=== PATIENT | female | born 1995 | race Caucasian/White ===

== ENCOUNTER → 2018-05-28 13:02 | Outpatient (CLI) | payer OTHER, SELFPAY ==
--- NOTE | 2018-05-28 13:09 | XR_ITS ---
XR chest 2V HISTORY: Cough, congestion, pain when breathing ITS.REASON: ACUTE BRONCHOPNEUMONIA ORDERING PHYSICIAN: Riaz Solitario MD PATIENT AGE: 22 years COMPARISON: None FINDINGS: The cardiomediastinal silhouette and pulmonary vascularity are within normal limits. Patchy density is present in the right middle lobe consistent with pneumonia. There are a few air bronchograms in the right middle lobe. Upper lobes are clear. No acute findings. No effusions. IMPRESSION: Right middle lobe pneumonia.
== END ==
PROVIDERS: PCP Internal Medicine Adolescent Medicine; Visit Provider Internal Medicine Adolescent Medicine
DX: J18.0 Bronchopneumonia, unspecified organism (principal)
CPT/HCPCS: 71046

== ENCOUNTER 2020-01-03 14:11 | Emergency (ER) | payer OTHER, SELFPAY ==
[2020-01-03 14:13] VITALS: BP 149/77; PULSE 88; RESP 18; TEMP 37; O2SAT 100; BMI 51.2
[2020-01-03 14:20] VITALS: BMI 51.2
--- NOTE | 2020-01-03 14:21 | XR_ITS ---
PROCEDURE: XR CHEST 2V CLINICAL HISTORY: pain with deep breath COMPARISON: CXR2V XR chest 2V from 05/28/2018 FINDINGS: The cardiomediastinal silhouette and pulmonary vascularity are within normal limits. The lungs are clear without infiltrates, suspicious nodules, or pleural effusions. No acute bony abnormalities. IMPRESSION: No acute findings. Dictated by: Matt Puga MD 01/03/2020 15:08 Electronically signed by Matt Puga MD in [place] 01/03/2020 15:08
[2020-01-03 14:33] LABS: Chloride 102 mmol/L (98-107); Sodium 140 mmol/L (136-145)
[2020-01-03 14:34] LABS: Potassium 3.5 mmoL/L (3.5-5.1)
[2020-01-03 14:35] LABS: Basophils # 0.1 K/mm3 (0-0.2); Basophils % 0.8 % (0.1-2.0); Eosinophils # 0.2 K/mm3 (0.0-0.4); Eosinophils % 2.3 % (0.1-12.0); Hematocrit 47.8 % (37.0-47.0); Hemoglobin 16.3 g/dL (12.2-16.2); Lymphocytes # 2.9 K/mm3 (0.7-4.5); Lymphocytes % 34.3 % (10-50); Mean Corpuscular Hemoglobin 30.4 pg (27.0-31.2); Mean Corpuscular Volume 89.2 fl (81-99); Mean Platelet Volume 8.1 fl (7.4-10.4); Monocytes # 0.5 K/mm3 (0.1-1.0); Monocytes % 6.2 % (1.7-9.3); Neutrophils # 4.8 K/mm3 (1.8-7.8); Neutrophils % 56.5 % (37.0-80.0); Platelet Count 321 K/mm3 (142-424); Red Blood Count 5.36 M/mm3 (4.20-5.40); White Blood Count 8.5 K/mm3 (4.8-10.8)
[2020-01-03 14:36] LABS: Alanine Aminotransferase 35 U/L (12-78); Albumin Level 4.2 g/dl (3.5-5.0); Albumin/Globulin Ratio 1.6 (1.1-1.8); Alkaline Phosphatase 72 U/L (38-126); Anion Gap 13.5 mEq/L (5-15); Aspartate Amino Transferase 28 U/L (14-36); Bilirubin,Total 0.3 mg/dl (0.2-1.3); Blood Urea Nitrogen 14 mg/dl (7-17); Calcium 9.5 mg/dl (8.4-10.2); Carbon Dioxide 28 mmol/L (22.0-30.0); Creatinine Clearance Estimated 84 mL/min (50-200); Estimated Glomerular Filt Rate 87 ml/min (>60); GFR (African American) 105 ML/MIN (>60); Globulin 2.7 g/dL (1.3-3.2); Glucose 109 mg/dl (74-100); Total Protein,Serum 6.9 g/dl (6.3-8.2)
[2020-01-03 14:53] LABS: HCG Qualitative, Serum Negative (Negative)
--- NOTE | 2020-01-03 15:02 | PC.NURSE ---
pt return from xray
--- NOTE | 2020-01-03 15:33 | HMH.EDGENADL ---
ED Disposition Clinical Impression: Acute bronchitis Disposition: Home, Self-Care Condition on Discharge: Good Instructions: Acute Bronchitis Additional Instructions: Please stay in quarantine until your cover test comes back tomorrow or Friday. Prescriptions: Azithromycin 250 mg PO DAILY 5 Days #6 tab Transmission Status: Pending to [facility] methylPREDNISolone [Medrol 4mg tab] 4 mg PO DIRECTED #21 tab Transmission Status: Pending to [facility] Albuterol Sulfate [Proventil-HFA 90mcg/puff Inh] 2 puffs IH QID 30 Days #1 inh Transmission Status: Pending to [facility] Referrals: Malcolm Baires MD [Primary Care Provider] - - Critical Care Critical Care Time: No Attestation: On 01/03/20, the high probability of a clinically significant, sudden or life threatening deterioration of the following system(s) required my full and direct attention, intervention and personal management. The time I documented below is in addition to time spent performing reported procedures but includes the following listed in this critical care notation. Medical Decision Making - Medical Records Medical records reviewed: Yes: I reviewed the patient's medical records. - Man Inquiry Pt receiving controlled substance: No Vital Signs: 01/03/20 14:13 Temperature 98.6 F Temperature Source Oral Pulse Rate [Right Radial] 88 Respiratory Rate 18 Blood Pressure [Right Arm] 149/77 H Blood Pressure Mean [Right Arm] 101 Blood Pressure Source [Right Arm] Automatic Cuff Blood Pressure Position [Right Arm] Sitting 02 Sat by Pulse Oximetry 100 Oxygen Delivery Method Room Air - Lab Data Lab results reviewed: Yes: I reviewed the patient's lab results. Lab Results 01/03/20 13:30: WBC 8.5, RBC 5.36, Hgb 16.3 H, Hct 47.8 H, MCV 89.2, MCH 30.4, MCHC 34.0, RDW 13.0, Plt Count 321, MPV 8.1, Neut % (Auto) 56.5, Lymph % (Auto) 34.3, Owen % (Auto) 6.2, Eos % (Auto) 2.3, Baso % (Auto) 0.8, Neut # (Auto) 4.8, Lymph # (Auto) 2.9, Owen # (Auto) 0.5, Eos # (Auto) 0.2, Baso # (Auto) 0.1 01/03/20 13:30: Sodium 140, Potassium 3.5, Chloride 102, Carbon Dioxide 28, Anion Gap 13.5, BUN 14, Creatinine 0.80, Estimated Creat Clear 84, Estimated GFR 87, Est GFR ( Amer) 105, Glucose 109 H, Calcium 9.5, Total Bilirubin 0.3, AST 28, ALT 35, Alkaline Phosphatase 72, Total Protein 6.9, Albumin 4.2, Globulin 2.7, Albumin/Globulin Ratio 1.6 01/03/20 13:30: Serum HCG, Qual Negative Result diagrams: 01/03/20 13:30 01/03/20 13:30 Orders (Tests/Meds): ED MEDICATIONS Discontinued Medications Generic Name Dose Route Start Last Admin Trade Name Freq PRN Reason Stop Dose Admin Dexamethasone Sodium Phosphate 10 mg 01/03/20 15:22 01/03/20 15:27 Decadron 4mg/Ml 1ml Vial IV 01/03/20 15:23 10 mg ONCE ONE Administration ORDERS Category Date Time Status SARS-CoV-2, JEANNA Routine Lab 01/03/20 15:25 Received - Radiology Data #1 Image(s): Chest Preliminary Findings: Normal/NAD General Adult HPI - General Chief complaint: PAIN Stated complaint: back pain Time Seen by Provider: 01/03/20 15:33 Mode of Arrival: EMS Source of Information: Patient Limitations: No Limitations Description of Symptoms (Recalled from ER Triage Doc. by RN): Pt reports she is having pain with deep inspiration. Pt reports has previously had pluerisy and the pain that she is currently having is similar to the pleurisy pain that she had. Pt reports she began taking the anti-inflammatory that she has previously taken for pluerisy but she does not know the name of it. - History of Present Illness HPI narrative: -year-old female presents with shortness of breath. She also states that she has a slight cough that started about 3 to 4 days ago. She states she is had issues like this in the past and she has been diagnosed with pleurisy. Patient denies any overt chest pain. Patient also denies any recent fever shakes
[2020-01-03 15:53] VITALS: BP 132/71; PULSE 78; RESP 16; TEMP 36.6; O2SAT 98
[2020-01-05 15:19] LABS: Covid-19 Nasal PCR Sendout Lex NOT DETECTED
== END 2020-01-03 15:55 | disposition home or self-care (01) ==
PROVIDERS: Emergency Provider Family Medicine; PCP Internal Medicine Adolescent Medicine
DX: J20.9 Acute bronchitis, unspecified (principal); Z03.818 Encounter for observation for suspected exposure to other biological agents ruled out
CPT/HCPCS: 71046; 80053; 84703; 85025; 96374; 99283; U0004

== ENCOUNTER 2022-02-16 11:53 | Emergency (ER) | payer SELFPAY ==
--- NOTE | 2022-02-16 11:51 | HMH.EDGENADL ---
Discharge Plan Disposition Patient Disposition: Home, Self-Care Condition: Good Chief Complaint: Extremity Injury, Lower Prescriptions Prescriptions: No Action azithromycin 250 MG tablet 250 mg PO DAILY 5 Days Qty: 6 0RF Rx Instructions: 2 tabs po x 1 day, then 250 mg daily x 4 days methylprednisolone 4 MG tablet 4 mg PO DIRECTED Qty: 21 0RF Rx Instructions: Take as directed on package instructions albuterol sulfate 200 PUFFS HFA aerosol inhaler 2 puffs IH QID 30 Days Qty: 1 0RF Referrals Follow up/Referrals: Riaz Solitario MD [Primary Care Provider] - See instructions Clinical Impressions Clinical Impression: Acute leg pain, Heart palpitations, Nausea Instructions Patient Instructions: DI for Leg Pain, DI for Nausea -- Adult, DI for Palpitations Print Language Print Language: [place] Discharge ED Provider: Remi Rogers General Adult HPI General Chief complaint: Extremity Injury, Lower Stated complaint: FALL Time Seen by Provider: 02/16/22 11:52 Mode of Arrival: EMS Source of Information: Patient Limitations: No Limitations History of Present Illness HPI narrative: 26-year-old female presenting via EMS with primary complaint of posterior right lower extremity discomfort just proximal to the popliteal fossa along the medial aspect of the inner thigh. She also states that she had been having symptoms that she had attributed to a panic attack, which she does have a history of however thought the symptoms were slightly different. She complains of shortness of breath, inability to take a deep breath, anxiety, palpitations, rapid heart rate. Currently she only complains of nausea in addition to the leg discomfort. She denies known leg swelling, denies any known history of blood clots or clotting disorders. There have been no recent procedures, surgical interventions, or long distance travel. Symptoms not appear to be exacerbated by any known factors, and there were no treatments prior to this visit Related Data Previous Rx's Medication Instructions Recorded albuterol sulfate 90 mcg/actuation 2 puffs IH QID 30 days #1 inh 01/03/20 aerosol inhaler azithromycin 250 mg tablet 250 mg PO DAILY Infection 5 days 01/03/20 #6 tabs methylprednisolone 4 mg tablet 4 mg PO DIRECTED #21 tabs 01/03/20 Allergies Allergy/AdvReac Type Severity Reaction Status Date / Time No Known Allergies Allergy Verified 06/28/18 11:44 [facility] Social History Smoking Status: Never smoker alcohol intake: never current occupational status: employed Travel in the last 8 weeks: None ROS Obtained: Yes Systems reviewed as appropriate & no additional complaints except as documented Constitutional Constitutional: Reports system reviewed and no additional complaints, except as documented Eyes Eyes: Reports system reviewed and no additional complaints, except as documented ENT Ears, Nose, Mouth, and Throat: Reports system reviewed and no additional complaints, except as documented Cardiovascular Cardiovascular: Reports dyspnea and Reports palpitations Respiratory Respiratory: Reports dyspnea and Denies pain with breathing Gastrointestinal Gastrointestingal: Reports system reviewed and no additional complaints, except as documented Genitourinary Female Genitourinary: Reports system reviewed and no additional complaints, except as documented Musculoskeletal Musculoskeletal: Reports other (pain distal medial right thigh, just above popliteal fossa, no swelling) Integumentary/Breasts Skin/Breast: Reports system reviewed and no additional complaints, except as documented Neurologic Neurologic: Reports system reviewed and no additional complaints, except as documented Endocrine Endocrine: Reports palpitations Physical Exam General General appearance: alert and in no apparent distress Head Head exam: atraumatic, normocephalic and normal i
[2022-02-16 11:53] VITALS: BP 171/95; PULSE 86; RESP 20; TEMP 36.7; O2SAT 95; BMI 56.0
--- NOTE | 2022-02-16 12:06 | XR_ITS ---
PROCEDURE INFORMATION: Exam: XR Chest Exam date and time: 02/16/2022 12:21 PM Age: 26 years old Clinical indication: Shortness of breath; Additional info: Sob/cp TECHNIQUE: Imaging protocol: Radiologic exam of the chest. Views: 1 view. COMPARISON: DX XR CHEST 2V 01/03/2020 2:50 PM FINDINGS: Lungs: Unremarkable. No consolidation. Pleural spaces: Unremarkable. No pleural effusion. No pneumothorax. Heart/Mediastinum: Unremarkable. No cardiomegaly. Bones/joints: Unremarkable. IMPRESSION: No acute findings.
--- NOTE | 2022-02-16 12:08 | PC.NURSE ---
1203 ED AT BEDSIDE FOR EVALUATION
--- NOTE | 2022-02-16 12:11 | PC.NURSE ---
XR AT BEDSIDE
--- NOTE | 2022-02-16 12:22 | PC.NURSE ---
BLOOD WORK AND COVID SWAB COLLECTED, PT TOLERATED WELL
[2022-02-16 12:24] LABS: Coronavirus 19, PCR Not Detected (NotDetected); Influenza A, PCR Not Detected (NotDetected); Influenza B, PCR Not Detected (NotDetected)
[2022-02-16 12:27] LABS: Basophils # 0.2 K/mm3 (0-0.2); Basophils % 1.7 % (0.1-2.0); Eosinophils # 0.2 K/mm3 (0.0-0.4); Eosinophils % 2.5 % (0.1-12.0); Hemoglobin 16.2 g/dL (12.2-16.2); Lymphocytes % 22.5 % (10-50); Mean Corpuscular HGB Conc 32.4 g/dL (31.8-35.4); Mean Corpuscular Hemoglobin 29.3 pg (27.0-31.2); Mean Corpuscular Volume 90.6 fl (81-99); Mean Platelet Volume 7.9 fl (7.4-10.4); Monocytes # 0.4 K/mm3 (0.1-1.0); Monocytes % 4.7 % (1.7-9.3); Neutrophils % 68.6 % (37.0-80.0); Platelet Count 379 K/mm3 (142-424); Red Blood Count 5.52 M/mm3 (4.20-5.40); Red Cell Distribution Width 13.3 % (11.5-17.5); White Blood Count 8.8 K/mm3 (4.8-10.8)
[2022-02-16 12:30] LABS: Chloride 101 mmol/L (98-107); Sodium 139 mmol/L (136-145)
[2022-02-16 12:32] LABS: Blood Urea Nitrogen 8 mg/dl (7-17); Creatinine Clearance Estimated 95 mL/min (50-200); Estimated Glomerular Filt Rate 100 ml/min (>60); GFR (African American) 121 ML/MIN (>60)
[2022-02-16 12:33] LABS: Alanine Aminotransferase 56 U/L (12-78); Albumin Level 4.3 g/dl (3.5-5.0); Albumin/Globulin Ratio 1.5 (1.1-1.8); Alkaline Phosphatase 93 U/L (38-126); Aspartate Amino Transferase 43 U/L (14-36); Bilirubin,Total 0.2 mg/dl (0.2-1.3); Carbon Dioxide 30 mmol/L (22.0-30.0); Globulin 2.8 g/dL (1.3-3.2); Total Protein,Serum 7.1 g/dl (6.3-8.2)
[2022-02-16 12:39] LABS: Glucose 186 mg/dl (74-100); HCG Qualitative, Serum Negative (Negative)
--- NOTE | 2022-02-16 12:41 | ECG_ITS ---
APPROVED REPORT Exam: Resting ECG HR:76 bpm ECG Measurements Heart Rate 76 AXES NE 140 P 2 QRSd 85 QRS 37 QT 345 T 18 QTc 375 Conclusion SINUS RHYTHM NONSPECIFIC T-WAVE ABNORMALITY BORDERLINE ECG UNCONFIRMED REPORT Electronically signed by : Malcolm Baires MD 02/18/2022 17:21:14
--- NOTE | 2022-02-16 12:45 | PC.NURSE ---
Rounded on patient ask if she needed anything. Patient in chair does not need anything at this time. Call light within reach. Will continue to monitor.
[2022-02-16 12:51] LABS: Troponin I < 0.01 ng/ml (0.00-0.034)
[2022-02-16 12:53] LABS: D-Dimer 0.48 ug/mL (0.0-0.5)
--- NOTE | 2022-02-16 13:11 | PC.NURSE ---
ED MD AT BEDSIDE TO DISCUSS DISCHARGE
[2022-02-16 13:13] VITALS: BP 144/86; PULSE 86; RESP 20; TEMP 36.8; O2SAT 99
== END 2022-02-16 13:15 | disposition home or self-care (01) ==
PROVIDERS: Emergency Provider Emergency Medicine; PCP Internal Medicine Adolescent Medicine
DX: M79.661 Pain in right lower leg (principal); R00.2 Palpitations; R11.0 Nausea
CPT/HCPCS: 71045; 80053; 84484; 84703; 85025; 85378; 93005; 99284; C9803; U0003; U0005

== ENCOUNTER 2024-04-07 10:17 | Outpatient (CLI) | payer BC, SELFPAY ==
--- NOTE | 2024-04-07 10:29 | NM_ITS ---
FINAL REPORT CLINICAL HISTORY: Right upper quadrant pain, gallbladder wall thickening FINDINGS: Sequential anterior projection images of the abdomen were obtained after the intravenous injection of 5.0 mCi technetium 99m Choletec. There is normal uptake of radiotracer by the liver. The bile ducts and gallbladder are visualized. Normal uptake is seen in the bowel. After 1 hour, 2.7 ?g of CCK was injected intravenously for calculation of gallbladder ejection fraction. The gallbladder ejection fraction is 92%, which is within normal limits. IMPRESSION: No evidence of cystic duct or bile duct obstruction. Normal gallbladder ejection fraction of 92%. Reviewed, Interpreted and Dictated by Luis Maxwell MD Transcribed by Seda Marion Authenticated and [facility]
[2024-04-07] MEDS: SODIUM CHLORIDE 0.9% 10ML SYR (RAD ONLY) 10 ML IV (10:45)
[2024-04-07] MEDS: SINCALIDE 2.7 MCG in 0.9 % SODIUM CHLORIDE 50 ML 100 MCG IV (12:01)
[2024-04-07] MEDS: ISOTOPE CHOLETECH;1 DOSE (UP TO 15 MCI) IV (12:01)
== END 2024-04-07 23:59 | disposition home or self-care (01) ==
LOC: RAD 10:18
PROVIDERS: PCP Nurse Practitioner Family; Visit Provider Nurse Practitioner Family
DX: K80.50 Calculus of bile duct without cholangitis or cholecystitis without obstruction (principal)
CPT/HCPCS: 78227; A9537; J2805